=== PATIENT | male | born 1945 | race Caucasian/White ===

== ENCOUNTER → 2018-08-09 07:37 | Outpatient (CLI) | payer MEDICARE, OTHER, SELFPAY ==
[2018-08-09 12:04] LABS: ALB/GLOB Ratio 0.8 RATIO (0.9-2.4); AST(SGOT) 31 U/L (15-37); Alanine Aminotransfer ALT/SGPT 46 U/L (16-61); Albumin, Serum 3.4 g/dL (3.2-5.0); Alkaline Phosphatase 90 U/L (45-117); Anion Gap 11 (5-15); BUN 25 mg/dL (7-18); BUN/Creat Ratio 21.6 RATIO (10-20); Calcium,Total 9.1 mg/dL (8.5-10.1); Chloride 102 mmol/L (98-107); Cholesterol 155 mg/dL (200); Creatinine, Serum 1.16 mg/dL (0.70-1.30); EST Glomerular Filtration Rate 66 mL/min (>60); Est Glom Filt Rate - Afr Amer 80 mL/min (>60); Globulin 4.3 g/dL (2.2-4.2); Glucose 100 mg/dL (74-106); High Density Lipoprotein 40 mg/dL; PSA,Total - Annual Screen 2.65 ng/mL (0.00-4.00); Potassium 4.1 mmol/L (3.5-5.1); Protein, Total 7.7 g/dL (6.4-8.2); Sodium Level 139 mmol/L (136-145); Triglycerides 115 mg/dL; Very Low Density Lipoprotein 23 mg/dL (5-40)
== END ==
PROVIDERS: Family Provider Family Medicine; PCP Family Medicine; Visit Provider Family Medicine
DX: E78.5 Hyperlipidemia, unspecified (principal); Z12.5 Encounter for screening for malignant neoplasm of prostate; M19.012 Primary osteoarthritis, left shoulder
CPT/HCPCS: 36415; 80053; 80061; 84153; 97110; 97140; G0103

== ENCOUNTER 2018-08-31 08:30 | Outpatient (RCR) | payer MEDICARE, OTHER, SELFPAY ==
--- NOTE | 2018-08-31 09:05 | HP.PTREVAL ---
Jonel Kat MD, It has been my pleasure to treat VALERIANO NICHOLSON over the last 8 visits for L reverse total shoulder. Please see the progress note below for an update on the physical therapy plan of care! Subjective: Patient reports that he is doing great- no problems- only mild pain with sleeping when he wakes up. He feels that his swelling is better and he is happy with progress. Goes to MD this week. Has resumed all normal activities including lifting grandchildren, spinning and being active Objective/Function: Posture: FH, RS, Increased kyphosis- can correct with verbal cueing but does not maintain. No sling or guarding of the left UE. Gait: good arms swing and trunk rotation. Palpation: not tender. ROM:AROM: flexion: 130 degrees, Abd: 125 degrees, IR: to pocket, ER: 30 degrees- elbow/wrist/finger dexterity: WNL. Strength: Isometrically: 5/5 throughout Plan Plan: Hold- returns to MD this week Goals Goal 1:: Patient will be I with HEP and progressions. Goal Time Frame: 4-6 Weeks Goal Progress: Progressing Goal 2:: Patient will increase UE AROM to functional limits where deficits (per protocol) Goal Time Frame: 4-6 Weeks Goal Progress: Progressing Goal 3:: Patient will maintain proper posture t/o tx session to demo increased scap s/s. Goal Time Frame: 4-6 Weeks Goal Progress: Progressing Goal 4:: Patient will return to all normal ADL's with 0/10 pain Goal Time Frame: 4-6 Weeks Goal Progress: Progressing Anticipated Interventions Patient/Client Instruction: Educate patient on: Plan of Care, Benefits of Fitness Program For the Purpose of:: To decrease pain, To decrease swelling/inflammation, To increase ROM Therapeutic Exercise to Include: Strength training, Endurance training, Body mechanics, Postural training, Passive ROM, Active ROM, Scapular Strength/Stabilization Comment: as per protocol For the Purpose of:: To improve muscle performance and motor function TENS: Yes Cryotherapy (ice pack, ice massage): Yes Thermo therapy (hot pack): Yes Ultrasound (thermal/non thermal): No Please do not hesitate to contact me at [phone] by phone or if you have questions or concerns regarding this new plan of care! Sincerely, Livia Talavera
--- NOTE | 2019-03-22 08:53 | HP.PTDCNRP_ITS ---
HP - Discharge Summary (1) - Patient Information VALERIANO NICHOLSON was seen in my office for initial evaluation on 08/06/18. The following Plan of Care was established for this patient: Initial Frequency: 2x /Week Initial Duration: 4 Weeks - Anticipated Interventions Patient/Client Instruction: Educate patient on: Plan of Care, Benefits of Fitness Program For the Purpose of:: To decrease pain, To decrease swelling/inflammation, To increase ROM Therapeutic Exercise to Include: Strength training, Endurance training, Body mechanics, Postural training, Passive ROM, Active ROM, Scapular Strength /Stabilization For the Purpose of:: To improve muscle performance and motor function TENS: Yes Cryotherapy (ice pack, ice massage): Yes Thermo therapy (hot pack): Yes Ultrasound (thermal/non thermal): No This patient was last seen in our office . Pertinent comments regarding their Physical therapy will appear below: Patient has not attended physical therapy in over 30 days. At this time it is appropriate to be discharged and return to MD for further evaluation as needed. At this point I will be discontinuing this patient from physical therapy. I would be happy to see this patient again in the future if found appropriate by the physician. Thank you! KATERINA ZunigaT
== END 2018-08-31 19:00 | disposition home or self-care (01) ==
LOC: PT 08:30
PROVIDERS: Family Provider Family Medicine; PCP Family Medicine; Visit Provider Orthopaedic Surgery
DX: M19.012 Primary osteoarthritis, left shoulder (principal)
CPT/HCPCS: 97110; 97140; 97162; 97164

== ENCOUNTER 2019-03-12 09:30 | Outpatient (RCR) | payer MEDICARE, OTHER, SELFPAY ==
--- NOTE | 2019-01-14 09:37 | HP.PTEVAL_ITS ---
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 Date of Evaluation: 01/14/19 Physical Therapist: Tomasz Staples, DPT, OCS, CSCS - Visit Plan Frequency: 2x /Week Duration: 3 Months Plan: 2x/week for 8-12 total as needed for ... phase 1 PROM R shoulder and scap and progression of HEP. Ensure AROM elbow, wirst , scap. NO IR, ext rotation toward 30 degrees as able, flexiona dn abd to 90. submaximal deltoid and periscapular painfree isometrics. - Subjective Findings: 01/07/19 R TSA(had L one done last fall). Was having shoulder pain and troubole sleeping and L one went so well he wanted it done soon. REV R TSA 01/07. Been in sling for last week, out to move elbow a little bit. Sleeping propped up in bed 45 degrees and comfortable without sling. Sleeping in bed 7-8 hours, reads at times. Ice machine used alot for the first week. Pulling pants on is tough after going to the bathroom. HEP: elbow ROM, moving it to 90 degrees, to neutral ext rotation. Precautions: no driving yet, no lifting. Can use R hand in sling. In sling for one month out and about. Can drive in another week. Retired [employer]. Retired 3 years. Activities include: 5 kids all adn grandchildren and spend time with them. All in [facility]. Enjoys golfing socially and belongs to country club. Enjoys tennis and is R handed. Enjoys skiing since . Basic ADLs, are challenign and limited with R UE right now. - Pain R shoulder. Pain Intensity (Out of 10): 1 Pain Intensity Range: 1, 5 Comment: worse at night, transitioning. Elbow can hurt at times - Objective Posture is forward head and scapula. L UE AROM. 35 ext rotation, IR to PSIS, flexion to 125 adn abd to 115. R UE PROM. 100 felxion, 90 abduction, 8 ext rotation, IR 2 inches off body. Limited by tightness in elevation and ext rotationa dn discomfort IR. R strength shoulder and elbow not tested. R elbow full AROM but slow at end range. R wrist AROM full and painfree. incision is large and anterior, healed well without drainage or excessive redness or heat. Moderate edema around anterior shoulder palpable adn slight discoloration down into medial elbow. - Goals Goal 1:: Sleep withotu waking at night due to pain Goal Time Frame: 6-8 Weeks Goal 2:: Full AROM to 150 flexiona dn abd and 50 ext rotation and IR to make ADLS easier. Goal Time Frame: 4-6 Weeks Goal 3:: Tuck in shirt and put on coat without pain Goal Time Frame: 4-6 Weeks Goal 4:: Pt feel back to 80% activities adn plan to resume golf Goal Time Frame: 8-12 Weeks - Rehabilitation Potential Physical Therapy Diagnosis: s/p rev TSA 01/07 Rehabilitation Potential: Good - Anticipated Interventions Patient/Client Instruction: Educate patient on: Condition, Plan of Care For the Purpose of:: To decrease pain, To decrease swelling/inflammation, To increase ROM, To improve nutrient delivery to tissue, To increase tolerance to activity/condition/position, To improve ability of physical actions for home/community/work/leisure Therapeutic Exercise to Include: Passive ROM, Active ROM Comment: isometrics For the Purpose of:: To decrease pain, To increase ROM, To improve nutrient delivery to tissue, To improve muscle performance and motor function Manual Therapy Techniques to Include: Passive ROM For the Purpose of:: To decrease pain, To increase ROM Cryotherapy (ice pack, ice massage): Yes Thermo therapy (hot pack): Yes For the Purpose of:: To decrease pain, To improve nutrient delivery to tissue Thank you for the opportunity to evaluate your patient. For Medicare and Medicare HMO plans, please review the plan of care and approve it. It will need to be FAXED BACK to us at [phone] for Medicare purposes. For Medicare only, by signing this I certify the plan of care. Please let me know if there are questions or concerns regarding this plan of care. Physician Signature: Date:
--- NOTE | 2019-02-11 09:51 | HP.PTREVAL ---
Jonel Kat MD, It has been my pleasure to treat VALERIANO NICHOLSON over the last 9 visits for OA R shoulder s/p rev TSA 01/07. Please see the progress note below for an update on the physical therapy plan of care! Subjective: Doing well. Pain daily is low. Sometimes hurts at night. taking one ibuprofen adn one tylenol which eliminates the pain. Vague ache with exercises but not bad. Out of sling. Doing stick ex standing and wall towel ex at home. Also doing isometric deltoid at home. Objective/Function: AROM: 130 flexion, 110 abd, 25 R and 30 L. IR to pocket. Increased ext rotation to 35 adn IR to PSIS after stretches. Plan Plan: 2x/week for 3-6 for start strengthening if doctor visit goes wella dn ensure elevation and rotations improving. Goals Goal 1:: Sleep withotu waking at night due to pain Goal Time Frame: 6-8 Weeks Goal Progress: Progressing Goal 2:: Full AROM to 150 flexiona dn abd and 50 ext rotation and IR to make ADLS easier. Goal Time Frame: 4-6 Weeks Goal Progress: Progressing Goal 3:: Tuck in shirt and put on coat without pain Goal Time Frame: 4-6 Weeks Goal Progress: Progressing Goal 4:: Pt feel back to 80% activities adn plan to resume golf Goal Time Frame: 8-12 Weeks Goal Progress: Progressing Anticipated Interventions Patient/Client Instruction: Educate patient on: Condition, Plan of Care For the Purpose of:: To decrease pain, To decrease swelling/inflammation, To increase ROM, To improve nutrient delivery to tissue, To increase tolerance to activity/condition/position, To improve ability of physical actions for home/community/work/leisure Therapeutic Exercise to Include: Passive ROM, Active ROM Comment: isometrics For the Purpose of:: To decrease pain, To increase ROM, To improve nutrient delivery to tissue, To improve muscle performance and motor function Manual Therapy Techniques to Include: Passive ROM For the Purpose of:: To decrease pain, To increase ROM Cryotherapy (ice pack, ice massage): Yes Thermo therapy (hot pack): Yes For the Purpose of:: To decrease pain, To improve nutrient delivery to tissue Please do not hesitate to contact me at [phone] by phone or if you have questions or concerns regarding this new plan of care! Sincerely, Tomasz Staples, DPT, OCS, CSCS
--- NOTE | 2019-03-12 10:26 | HP.PTDCSUM ---
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 Discharge Date: 03/12/19 Please see the following information for a summary of their discharge status. - Subjective Subjective: Ready to be done. Does HEP at HP and at home. Has pulleys at home. To doctor in July as needed. Sleep is OK, improoving, Some discomfort if sleeps on L side with R arm hanging. Will avoid this. Daily activities are pretty normal outsid eof reaching into R back pocket. Lifting 25# without a problem. Pain level is not present except at night if in wrong position. - Pain R shoulder. Pain Intensity (Out of 10): 1 - Overall Improvement % Improvement: 90 - Objective Objective/Function: 143 flexion, 135 abd, er 35 R and 20 L , to back pocket with IR. Better after stick IR. 4+/5 and symmetrical with L strength in flexion, abd, ext rot, and IR. OVERALL DOING WELL IN MEASURABLES AND SUBJECTIVE. - Goals Goal 1:: Sleep withotu waking at night due to pain Goal Progress: Goal Met Goal 2:: Full AROM to 150 flexiona dn abd and 50 ext rotation and IR to make ADLS easier. Goal Progress: 143 Goal 3:: Tuck in shirt and put on coat without pain Goal Progress: Goal Met Goal 4:: Pt feel back to 80% activities adn plan to resume golf Goal Progress: Goal Met - Plan Plan: D/C, TO CONTINUE EX I IN GYMA ND AT HOME. - D/C Information Discharge Comments: Pt doing well with HEP and will continue I at home and in gym. Will notify If there are questions or concerns regarding this patient's physical therapy, please feel free to call me at [phone]. Thank you for the referral of this patient. Sincerely, Tomasz Staples, DPT, OCS, CSCS
== END 2019-03-12 19:00 | disposition home or self-care (01) ==
LOC: PT 09:30
PROVIDERS: Family Provider Family Medicine; PCP Family Medicine; Visit Provider Orthopaedic Surgery
DX: Z96.611 Presence of right artificial shoulder joint (principal)
CPT/HCPCS: 97110; 97140; 97162; 97530

== ENCOUNTER → 2019-08-16 10:56 | Outpatient (CLI) | payer MEDICARE, OTHER, SELFPAY ==
[2019-08-16 12:32] LABS: AST(SGOT) 22 U/L (15-37); Alanine Aminotransfer ALT/SGPT 28 U/L (16-61); Albumin, Serum 3.8 g/dL (3.2-5.0); Alkaline Phosphatase 83 U/L (45-117); Anion Gap 6 (5-15); BUN 17 mg/dL (7-18); BUN/Creat Ratio 13.7 RATIO (10-20); Calcium,Total 9.5 mg/dL (8.5-10.1); Chloride 103 mmol/L (98-107); Cholesterol 200 mg/dL (200); Creatinine, Serum 1.24 mg/dL (0.70-1.30); EST Glomerular Filtration Rate 61 mL/min (>60); Est Glom Filt Rate - Afr Amer 74 mL/min (>60); Glucose 106 mg/dL (74-106); High Density Lipoprotein 56 mg/dL; Potassium 4.2 mmol/L (3.5-5.1); Protein, Total 7.8 g/dL (6.4-8.2); Sodium Level 137 mmol/L (136-145); Triglycerides 132 mg/dL; Very Low Density Lipoprotein 26 mg/dL (5-40)
== END ==
PROVIDERS: Family Provider Family Medicine; PCP Family Medicine; Referring Provider Family Medicine; Visit Provider Family Medicine
DX: E78.5 Hyperlipidemia, unspecified (principal); Z12.5 Encounter for screening for malignant neoplasm of prostate
CPT/HCPCS: 36415; 80053; 80061; 84153; G0103

== ENCOUNTER → 2020-05-05 08:48 | Outpatient (CLI) | payer MEDICARE, OTHER, SELFPAY ==
[2020-05-05 10:37] LABS: Cholesterol 167 mg/dL (200); High Density Lipoprotein 59 mg/dL; Triglycerides 94 mg/dL; Very Low Density Lipoprotein 19 mg/dL (5-40)
== END ==
PROVIDERS: PCP Family Medicine; Referring Provider Family Medicine; Visit Provider Family Medicine
DX: E78.5 Hyperlipidemia, unspecified (principal)
CPT/HCPCS: 36415; 80061

== ENCOUNTER → 2020-09-10 08:05 | Outpatient (CLI) | payer MEDICARE, OTHER, SELFPAY ==
[2020-09-10 09:55] LABS: Hematocrit 46.4 % (40-54); Hemoglobin 15.5 g/dL (13.0-16.5); Mean Corp Hgb Conc 33.4 g/dL (32-36); Mean Corpuscular Hgb 31.1 pg (27.0-32.0); Mean Corpuscular Volume 93.2 fL (80-94); Mean Platelet Vol. 11.1 fl (6.2-12.0); Platelet Count 229 K/mm3 (150-450); RBC Distribution Width CV 12.8 % (11.6-14.6); RBC Distribution Width SD 44.2 fl (35.1-43.9); Red Blood Count 4.98 M/mm3 (4.6-6.2); White Blood Count 5.9 K/mm3 (4.4-11.0)
[2020-09-10 10:27] LABS: ALB/GLOB Ratio 1.1 RATIO (0.9-2.4); AST(SGOT) 30 U/L (15-37); Alanine Aminotransfer ALT/SGPT 33 U/L (16-61); Alkaline Phosphatase 63 U/L (45-117); Anion Gap 6 (5-15); BUN 30 mg/dL (7-18); BUN/Creat Ratio 22.7 RATIO (10-20); Calcium,Total 8.7 mg/dL (8.5-10.1); Chloride 104 mmol/L (98-107); Cholesterol 169 mg/dL (200); Creatinine, Serum 1.32 mg/dL (0.70-1.30); EST Glomerular Filtration Rate 57 mL/min (>60); Est Glom Filt Rate - Afr Amer 68 mL/min (>60); Globulin 3.8 g/dL (2.2-4.2); Glucose 112 mg/dL (74-106); High Density Lipoprotein 64 mg/dL; PSA,Total - Annual Screen 1.06 ng/mL (0.00-4.00); Potassium 4.2 mmol/L (3.5-5.1); Protein, Total 7.8 g/dL (6.4-8.2); Sodium Level 139 mmol/L (136-145); Triglycerides 77 mg/dL; Very Low Density Lipoprotein 15 mg/dL (5-40)
== END ==
PROVIDERS: PCP Family Medicine; Referring Provider Family Medicine; Visit Provider Family Medicine
DX: D03.9 Melanoma in situ, unspecified (principal); R73.01 Impaired fasting glucose; E78.5 Hyperlipidemia, unspecified; N40.0 Benign prostatic hyperplasia without lower urinary tract symptoms
CPT/HCPCS: 36415; 80053; 80061; 83036; 84153; 85027; G0103

== ENCOUNTER 2021-01-01 16:56 | Outpatient (RCR) | payer MEDICARE, OTHER, SELFPAY | END 2021-01-01 23:59 | LOC: IMMUN 16:56 | PROVIDERS: PCP Family Medicine; Visit Provider Family Medicine | DX: Z23 Encounter for immunization (principal) | CPT/HCPCS: 0011A; 0012A ==

== ENCOUNTER → 2021-08-17 09:15 | Outpatient (CLI) | payer MEDICARE, OTHER, SELFPAY ==
[2021-08-17 10:06] LABS: Hematocrit 45.9 % (40-54); Hemoglobin 15.3 g/dL (13.0-16.5); Mean Corp Hgb Conc 33.3 g/dL (32-36); Mean Corpuscular Hgb 30.2 pg (27.0-32.0); Mean Corpuscular Volume 90.7 fL (80-94); Mean Platelet Vol. 10.7 fl (6.2-12.0); Platelet Count 200 K/mm3 (150-450); RBC Distribution Width SD 43.5 fl (35.1-43.9); Red Blood Count 5.06 M/mm3 (4.6-6.2); White Blood Count 5.7 K/mm3 (4.4-11.0)
[2021-08-17 10:34] LABS: Hemoglobin A1c 5.9 % (3.8-5.6)
[2021-08-17 10:47] LABS: AST(SGOT) 21 U/L (15-37); Alanine Aminotransfer ALT/SGPT 24 U/L (16-61); Albumin, Serum 3.6 g/dL (3.2-5.0); Alkaline Phosphatase 59 U/L (45-117); Anion Gap 8 (5-15); BUN 28 mg/dL (7-18); BUN/Creat Ratio 25.7 RATIO (10-20); Calcium,Total 8.9 mg/dL (8.5-10.1); Chloride 102 mmol/L (98-107); Cholesterol 231 mg/dL (200); Creatinine, Serum 1.09 mg/dL (0.70-1.30); EST Glomerular Filtration Rate 70 mL/min (>60); Est Glom Filt Rate - Afr Amer 85 mL/min (>60); Globulin 3.7 g/dL (2.2-4.2); Glucose 103 mg/dL (74-106); High Density Lipoprotein 46 mg/dL; PSA,Total - Annual Screen 1.31 ng/mL (0.00-4.00); Potassium 4.1 mmol/L (3.5-5.1); Protein, Total 7.3 g/dL (6.4-8.2); Sodium Level 140 mmol/L (136-145); Triglycerides 149 mg/dL; Very Low Density Lipoprotein 30 mg/dL (5-40)
== END ==
PROVIDERS: PCP Family Medicine; Referring Provider Family Medicine; Visit Provider Family Medicine
DX: E78.5 Hyperlipidemia, unspecified (principal); Z12.5 Encounter for screening for malignant neoplasm of prostate; R73.01 Impaired fasting glucose
CPT/HCPCS: 36415; 80053; 80061; 83036; 84153; 85027; G0103

== ENCOUNTER → 2021-11-03 08:25 | Outpatient (CLI) | payer MEDICARE, OTHER, SELFPAY ==
[2021-11-03 10:29] LABS: Cholesterol 236 mg/dL (200); High Density Lipoprotein 45 mg/dL; Triglycerides 137 mg/dL; Very Low Density Lipoprotein 27 mg/dL (5-40)
== END ==
PROVIDERS: PCP Family Medicine; Referring Provider Family Medicine; Visit Provider Family Medicine
DX: E78.5 Hyperlipidemia, unspecified (principal)
CPT/HCPCS: 36415; 80061

== ENCOUNTER 2022-01-31 10:00 | Outpatient (RCR) | payer MEDICARE, OTHER, SELFPAY ==
--- NOTE | 2021-12-03 09:43 | HP.PTEVAL_ITS ---
Patient's Visit Information VALERIANO NICHOLSON is a 76 year old M referred to Physical Therapy by AKIL REEVES with a diagnosis of L posterior tibial tendon dysfunction with subsequent posterior tibial tend. Date of Evaluation: 12/03/21 Physical Therapist: Miguel Mitchell DPT - Visit Plan Frequency: 3x /Week Duration: 6 Weeks Plan: Start with ankle ROM, avoid increased pronation. Add in ankle strengthening, hip ER and hip abd. Progress proper gait mechanics working on reducing pronation along with improved initial contact and stability in stance phase. Consider SLS activities once pain is minimal with focus on proper stability with reduced foot/ankle pronation. IE HEP: 4 way OTB 3x10. toe curls x20. gatroc stretch with towel 3x1'. soleus stretch with towel 3x1'. above given as HEP. Pt. to complete x2 daily. - Subjective Pt. is here today for his initial evaluation diagnosis of L posterior tibial tendon dysfunction with subsequent posterior tibial tendon transfer. Surgery was 10 weeks ago. Pt. was initially in a cast which was removed last week. He is now full WBing on his LLE. He reports overall minimal pain with walking, but feels like he is walking a but off. Denies N/T, no changes in vision or breathing, no calf pain noted. 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 Hobbies include walking, hiking and cycling. He is hopeful to get back to all of these activities without limitations. He was advised to look into a compression sleeve of some sort and to wear OTC orthotics to increase longitudinal arch stability. He is very active and looking to get back to doing so. He did have a little skin irritation at medial malleolus, but reports that this is mostly superficial. Pt. to RTD in 4 -5 weeks. - Pain L ankle Pain Intensity (Out of 10): 1 Pain Intensity Range: 0, 3 - Objective POSTURE: Pt. has normal WBing in stance. He has slight ankle EVR with slight pronation in bare feet, improved with wearing orthotic and shoes. PALPATION: Pt. has normal healing incision along posterior tibial tendon, posterior to medial malleolus. He does have a small area of skin break down. Appears to be superficial in nature and no signs of infection. Will continue to monitor until healed. NEURO: Normal sensation and normal DTR of BLEs. ROM: R ankle: DF 18deg, PF 48deg, INV 13deg, EVR 16deg. L ankle: PF 38deg, DF 3deg, INV 3deg, EVR 16deg. Pt. reports no pain with active mobility today. He does tend to go into ankle EVR with DF activation. Pt. has normal B knee ROM and hip ROM. MMT: R ankle 5/5 throughout. L ankle: DF 4/5, PF 4+/5, INV 4/5, EVR 4/5. toe flexors 4/5, ext 5-/5. L knee 5/5 throughout. L hip: 5/5, except hip ER 4/5, and hip abd 4/5. GAIT: Pt. has early heel off at end of stance phase on LLE along with increased ankle EVR resulting in slight increase in great toe push off and increased pronation. Improved with VCing, which did slow down emmanuel. - Balance/Special Test Scores Lower Extremity Functional Score: 49 - Goals Goal 1:: LTG: Pt. to be I with HEP for ankle/foot strengthening, ankle ROM and gait progression. Goal Time Frame: 4-6 Weeks Goal 2:: STG: Pt. to have increased DF with out EVR compensation to 15deg allowing for improved gait mechanics and stair negotiation Goal Time Frame: 2-4 Weeks Goal 3:: LTG: Pt. to normal gait pattern with out increase in symptoms. Goal Time Frame: 4-6 Weeks Goal 4:: LTG: Pt. to have increased foot/ankle/hip strength to 5/5 throughout. Goal Time Frame: 4-6 Weeks Goal 5:: LTG: Pt. to resume cycling without increase in symptoms. Goal Time Frame: 4-6 Weeks Goal 6:: LTG: Pt. to ambulate 1 mile without increase in symptoms with proper gait mechanics. Goal Time Frame: 4-6 Weeks - Rehabilitation Potential Physical Therapy Diagnosis: Pt. has signs and symptoms consistent with L posterior tibial tendon dysfunction with subsequent posterior tibial tendon transfer. Pt. has subsequent hypomobility, weakness and difficulty with gait. Pt. would benefit from PT to address the above limitations progressing - Anticipated Interventions Patient/Client Instruction: Educate patient on: Condition, Plan of Care, Risk Factors, Benefits of Fitness Program For the Purpose of:: To foster healthy habits, To improve decision making, To facilitate caregiver knowledge, To improve self management, To prevent re-inju ry, To improve ability to perform tasks related to life management Therapeutic Exercise to Include: Strength training, Power training, Endurance training, Balance training, Coordination, Body mechanics, Postural training, Flexibilty training, Gait and locomotor training, Passive ROM, Active ROM For the Purpose of:: To decrease pain, To increase ROM, To improve nutrient delivery to tissue, To increase oxygenation perfusion, To improve muscle performance and motor function, To decrease level of supervision to perform tasks, To improve ability of physical actions for home/community/work/leisure, To improve gait and locomotor functions, To improve health of tissue, To decrease soft tissue restriction, To increase flexibility/ROM Thank you for the opportunity to evaluate your patient. For Medicare and Medicare HMO plans, please review the plan of care and approve it. It will need to be FAXED BACK to us at [phone] for Medicare purposes. For Medicare only, by signing this I certify the plan of care. Please let me know if there are questions or concerns regarding this plan of care. Physician Signature:_ Date:
--- NOTE | 2022-01-04 16:24 | HP.PTREVAL_ITS ---
AKIL REEVES, It has been my pleasure to treat VALERIANO NICHOLSON over the last 14 visits for L posterior tibial tendon dysfunction with subsequent posterior tibial tend. Please see the progress note below for an update on the physical therapy plan of care! Subjective: Pt. reports overall doing well. He is back to doing his cycling classes, including clipping in without issues. He reports waling upto 1.5 miles without much issues. He still reports his foot wants to pronate during gait, but is overall doing better. Objective/Function: Presentation: Pt. has a slight increase in ankle EVR position with hind foot valgus in stance. PALPATION: pt. has well healed incision, no signs of infection. No pain with palpation. NEURO: normal sensation throughout. ROM: DF 9deg, PF 44deg, INV 3 deg, EVR 20deg. MMT: DF 5/5, PF 5/5, EVR 5/5, INV 3/5. Knee: 5/5 throughout. gait: Pt. has good heel strike with initial contact. He does have increased pronation during stance and pre swing phases. Improved with VCing to work on push off, and post tib activation. Plan Plan: Pt. to follow up with physician later this week. I do think he needs to continue to work on ankle ROM especially into INV and supination. Balance/Gait/Functional tests - Balance/Special Test Scores Lower Extremity Functional Score: 60 Goals Goal 1:: LTG: Pt. to be I with HEP for ankle/foot strengthening, ankle ROM and gait progression. Goal Time Frame: 4-6 Weeks Goal Progress: Progressing Goal 2:: STG: Pt. to have increased DF with out EVR compensation to 15deg allowing for improved gait mechanics and stair negotiation Goal Time Frame: 2-4 Weeks Goal Progress: Progressing Goal 3:: LTG: Pt. to normal gait pattern with out increase in symptoms. Goal Time Frame: 4-6 Weeks Goal Progress: Progressing Goal 4:: LTG: Pt. to have increased foot/ankle/hip strength to 5/5 throughout. Goal Time Frame: 4-6 Weeks Goal Progress: Progressing Goal 5:: LTG: Pt. to resume cycling without increase in symptoms. Goal Time Frame: 4-6 Weeks Goal Progress: Goal Met Goal 6:: LTG: Pt. to ambulate 1 mile without increase in symptoms with proper gait mechanics. Goal Time Frame: 4-6 Weeks Goal Progress: Progressing Anticipated Interventions Patient/Client Instruction: Educate patient on: Condition, Plan of Care, Risk Factors, Benefits of Fitness Program For the Purpose of:: To foster healthy habits, To improve decision making, To facilitate caregiver knowledge, To improve self management, To prevent re- injury, To improve ability to perform tasks related to life management Therapeutic Exercise to Include: Strength training, Power training, Endurance training, Balance training, Coordination, Body mechanics, Postural training, Flexibilty training, Gait and locomotor training, Passive ROM, Active ROM For the Purpose of:: To decrease pain, To increase ROM, To improve nutrient delivery to tissue, To increase oxygenation perfusion, To improve muscle performance and motor function, To decrease level of supervision to perform tasks, To improve ability of physical actions for home/community/work/leisure, To improve gait and locomotor functions, To improve health of tissue, To decrease soft tissue restriction, To increase flexibility/ROM Please do not hesitate to contact me at [phone] by phone or if you have questions or concerns regarding this new plan of care! Sincerely, KATERINA MillsT
--- NOTE | 2022-01-31 10:50 | HP.PTREVAL_ITS ---
AKIL REEVES, It has been my pleasure to treat VALERIANO NICHOLSON over the last 20 visits for L posterior tibial tendon dysfunction with subsequent posterior tibial tend. Please see the progress note below for an update on the physical therapy plan of care! Subjective: Pt. reports overall doing well. pt. reports no pain. He has recently got an over the counter orthotic which is helping. Pt. is going on vacation soon. He reports being 85% better overall. Objective/Function: Pt. has good ROM of his L ankle; DF 13deg, PF 41deg, INV 4d eg, EVR 13deg) actively. MMT 5/5 with make testing. GAIT: Pt. is walking well. He has good foot positioning with shoe on, slight increase in pronation during stance phase with out shoes on. SLS: He has increased pronation and EVR during SLS, improved with VCing. Overall he is doing well. He is back to cycling without issues and has been able to walk ~2 miles without pain. Plan Plan: Pt. will be DC to [facility] at this point in time. He has met all goals and is I with his HEP. Balance/Gait/Functional tests - Balance/Special Test Scores Lower Extremity Functional Score: 66 Goals Goal 1:: LTG: Pt. to be I with HEP for ankle/foot strengthening, ankle ROM and gait progression. Goal Time Frame: 4-6 Weeks Goal Progress: Goal Met Goal 2:: STG: Pt. to have increased DF with out EVR compensation to 15deg allowing for improved gait mechanics and stair negotiation Goal Time Frame: 2-4 Weeks Goal Progress: Goal Met Goal 3:: LTG: Pt. to normal gait pattern with out increase in symptoms. Goal Time Frame: 4-6 Weeks Goal Progress: Goal Met Goal 4:: LTG: Pt. to have increased foot/ankle/hip strength to 5/5 throughout. Goal Time Frame: 4-6 Weeks Goal Progress: Goal Met Goal 5:: LTG: Pt. to resume cycling without increase in symptoms. Goal Time Frame: 4-6 Weeks Goal Progress: Goal Met Goal 6:: LTG: Pt. to ambulate 1 mile without increase in symptoms with proper gait mechanics. Goal Time Frame: 4-6 Weeks Goal Progress: Goal Met Anticipated Interventions Patient/Client Instruction: Educate patient on: Condition, Plan of Care, Risk Factors, Benefits of Fitness Program For the Purpose of:: To foster healthy habits, To improve decision making, To facilitate caregiver knowledge, To improve self management, To prevent re- injury, To improve ability to perform tasks related to life management Therapeutic Exercise to Include: Strength training, Power training, Endurance training, Balance training, Coordination, Body mechanics, Postural training, Flexibilty training, Gait and locomotor training, Passive ROM, Active ROM For the Purpose of:: To decrease pain, To increase ROM, To improve nutrient delivery to tissue, To increase oxygenation perfusion, To improve muscle performance and motor function, To decrease level of supervision to perform tasks, To improve ability of physical actions for home/community/work/leisure, To improve gait and locomotor functions, To improve health of tissue, To decrease soft tissue restriction, To increase flexibility/ROM Please do not hesitate to contact me at [phone] by phone or if you have questions or concerns regarding this new plan of care! Sincerely, Miguel Mitchell DPT
--- NOTE | 2022-01-31 13:14 | HP.PTDCSUM ---
It has been my pleasure to treat VALERIANO NICHOLSON referred by AKIL REEVES, with the diagnosis of L posterior tibial tendon dysfunction with subsequent posterior tibial tend for a total of 20 visit(s). Discharge Date: 01/31/22 Please see the following information for a summary of their discharge status. Subjective: Pt. reports overall doing well. pt. reports no pain. He has recently got an over the counter orthotic which is helping. Pt. is going on vacation soon. He reports being 85% better overall. L ankle Pain Intensity (Out of 10): 0 % Improvement: 85 Objective/Function: Pt. has good ROM of his L ankle; DF 13deg, PF 41deg, INV 4deg, EVR 13deg) actively. MMT 5/5 with make testing. GAIT: Pt. is walking well. He has good foot positioning with shoe on, slight increase in pronation during stance phase with out shoes on. SLS: He has increased pronation and EVR during SLS, improved with VCing. Overall he is doing well. He is back to cycling without issues and has been able to walk ~2 miles without pain. Goal 1:: LTG: Pt. to be I with HEP for ankle/foot strengthening, ankle ROM and gait progression. Goal Progress: Goal Met Goal 2:: STG: Pt. to have increased DF with out EVR compensation to 15deg allowing for improved gait mechanics and stair negotiation Goal Progress: Goal Met Goal 3:: LTG: Pt. to normal gait pattern with out increase in symptoms. Goal Progress: Goal Met Goal 4:: LTG: Pt. to have increased foot/ankle/hip strength to 5/5 throughout. Goal Progress: Goal Met Goal 5:: LTG: Pt. to resume cycling without increase in symptoms. Goal Progress: Goal Met Goal 6:: LTG: Pt. to ambulate 1 mile without increase in symptoms with proper gait mechanics. Goal Progress: Goal Met Plan: Pt. will be DC to HEP at this point in time. He has met all goals and is I with his HEP. Discharge Comments: Pt is overall doing well. Pt. has met all goals with PT and will be DC to HEP at this point in time. If there are questions or concerns regarding this patient's physical therapy, please feel free to call me at [phone]. Thank you for the referral of this patient. Sincerely, Miguel Mitchell, DPT Balance/Gait/Functional tests - Balance/Special Test Scores Lower Extremity Functional Score: 66
== END 2022-01-31 19:00 | disposition home or self-care (01) ==
LOC: PT 10:00
PROVIDERS: PCP Family Medicine
DX: Z98.890 Other specified postprocedural states (principal)
CPT/HCPCS: 97110; 97161; 97164

== ENCOUNTER → 2022-08-22 | Outpatient (CLI) | payer MEDICARE, OTHER, SELFPAY ==
[2022-08-22 10:10] LABS: Hemoglobin 15.4 g/dL (13.0-16.5); Mean Corp Hgb Conc 34.2 g/dL (32-36); Mean Corpuscular Volume 90.5 fL (80-94); Mean Platelet Vol. 10.8 fl (6.2-12.0); Platelet Count 200 K/mm3 (150-450); RBC Distribution Width SD 43.3 fl (35.1-43.9); Red Blood Count 4.97 M/mm3 (4.6-6.2); White Blood Count 6.3 K/mm3 (4.4-11.0)
[2022-08-22 11:16] LABS: ALB/GLOB Ratio 1.1 RATIO (0.9-2.4); AST(SGOT) 30 U/L (15-37); Alanine Aminotransfer ALT/SGPT 47 U/L (16-61); Albumin, Serum 3.9 g/dL (3.2-5.0); Alkaline Phosphatase 59 U/L (45-117); Anion Gap 8 (5-15); BUN 27 mg/dL (7-18); BUN/Creat Ratio 23.7 RATIO (10-20); Calcium,Total 9.1 mg/dL (8.5-10.1); Chloride 105 mmol/L (98-107); Cholesterol 172 mg/dL (200); Creatinine, Serum 1.14 mg/dL (0.70-1.30); EST Glomerular Filtration Rate 67 mL/min (>60); Est Glom Filt Rate - Afr Amer 81 mL/min (>60); Globulin 3.7 g/dL (2.2-4.2); Glucose 104 mg/dL (74-106); High Density Lipoprotein 51 mg/dL; PSA,Total - Annual Screen 1.23 ng/mL (0.00-4.00); Potassium 3.9 mmol/L (3.5-5.1); Protein, Total 7.6 g/dL (6.4-8.2); Sodium Level 140 mmol/L (136-145); Triglycerides 89 mg/dL; Very Low Density Lipoprotein 18 mg/dL (5-40)
== END | disposition home or self-care (01) ==
LOC: MFPLAB 09:26
PROVIDERS: PCP Family Medicine; Visit Provider Family Medicine
DX: Z00.00 Encounter for general adult medical examination without abnormal findings (principal); E78.5 Hyperlipidemia, unspecified; N40.0 Benign prostatic hyperplasia without lower urinary tract symptoms; Z12.5 Encounter for screening for malignant neoplasm of prostate
CPT/HCPCS: 36415; 80053; 80061; 84153; 85027; G0103

== ENCOUNTER → 2023-08-28 | Outpatient (CLI) | payer MEDICARE, OTHER, SELFPAY ==
[2023-08-28 11:29] LABS: AST(SGOT) 23 U/L (15-37); Alanine Aminotransfer ALT/SGPT 40 U/L (16-61); Albumin, Serum 3.8 g/dL (3.2-5.0); Alkaline Phosphatase 58 U/L (45-117); Anion Gap 8 (5-15); BUN 29 mg/dL (7-18); Calcium,Total 8.7 mg/dL (8.5-10.1); Chloride 106 mmol/L (98-107); Cholesterol 170 mg/dL (200); EST Glomerular Filtration Rate 77 mL/min (>60); Est Glom Filt Rate - Afr Amer 93 mL/min (>60); Globulin 3.7 g/dL (2.2-4.2); Glucose 103 mg/dL (74-106); High Density Lipoprotein 51 mg/dL; Potassium 4.1 mmol/L (3.5-5.1); Protein, Total 7.5 g/dL (6.4-8.2); Sodium Level 138 mmol/L (136-145); Triglycerides 90 mg/dL; Very Low Density Lipoprotein 18 mg/dL (5-40)
[2023-08-28 11:35] LABS: Hemoglobin A1c 5.9 % (3.8-5.6)
== END | disposition home or self-care (01) ==
LOC: MFPLAB 09:11
PROVIDERS: PCP Family Medicine; Visit Provider Family Medicine
DX: E78.5 Hyperlipidemia, unspecified (principal); R73.01 Impaired fasting glucose; Z12.5 Encounter for screening for malignant neoplasm of prostate
CPT/HCPCS: 36415; 80053; 80061; 83036; 84153; G0103

== ENCOUNTER → 2024-09-04 | Outpatient (CLI) | payer MEDICARE, OTHER, SELFPAY ==
[2024-09-04 10:41] LABS: AST(SGOT) 23 U/L (15-37); Alanine Aminotransfer ALT/SGPT 26 U/L (16-61); Albumin, Serum 3.9 g/dL (3.2-5.0); Alkaline Phosphatase 65 U/L (45-117); Anion Gap 7 (5-15); BUN 20 mg/dL (7-18); Bilirubin, Direct 0.21 mg/dL (0.00-0.30); Calcium,Total 9.6 mg/dL (8.5-10.1); Chloride 102 mmol/L (98-107); Cholesterol 170 mg/dL (200); Creatinine, Serum 1.11 mg/dL (0.70-1.30); EST Glomerular Filtration Rate 68 mL/min (>60); Est Glom Filt Rate - Afr Amer 83 mL/min (>60); Globulin 4.1 g/dL (2.2-4.2); Glucose 110 mg/dL (74-106); High Density Lipoprotein 56 mg/dL; PSA,Total - Annual Screen 1.37 ng/mL (0.00-4.00); Potassium 3.9 mmol/L (3.5-5.1); Sodium Level 135 mmol/L (136-145); Triglycerides 119 mg/dL; Very Low Density Lipoprotein 24 mg/dL (5-40)
== END | disposition home or self-care (01) ==
LOC: MFPLAB 08:21
PROVIDERS: PCP Family Medicine; Visit Provider Family Medicine
DX: Z12.5 Encounter for screening for malignant neoplasm of prostate (principal); E78.5 Hyperlipidemia, unspecified; R73.01 Impaired fasting glucose
CPT/HCPCS: 36415; 80048; 80061; 80076; 84153; G0103

== ENCOUNTER → 2025-02-27 | Outpatient (CLI) | payer MEDICARE, OTHER, SELFPAY ==
[2025-02-27 11:02] LABS: Anion Gap 11 (5-15); BUN 27 mg/dL (4-19); BUN/Creat Ratio 22.9 RATIO (10-20); Calcium,Total 9.8 mg/dL (7.6-11.0); Carbon Dioxide 24.1 mmol/L (21.0-32.0); Chloride 101 mmol/L (98-108); Creatinine, Serum 1.17 mg/dL (0.70-1.20); EST Glomerular Filtration Rate 64 (>60); Glucose 97 mg/dL (70-99); Potassium 4.1 mmol/L (3.3-5.1); Sodium Level 136 mmol/L (133-145)
== END | disposition home or self-care (01) ==
LOC: MFPLAB 08:54
PROVIDERS: PCP Family Medicine; Referring Provider Family Medicine; Visit Provider Family Medicine
DX: R73.01 Impaired fasting glucose (principal)
CPT/HCPCS: 36415; 80048

== ENCOUNTER → 2025-09-01 | Outpatient (CLI) | payer MEDICARE, OTHER, SELFPAY ==
[2025-09-01 15:45] LABS: AST(SGOT) 32 U/L (<=37); Alanine Aminotransfer ALT/SGPT 29 U/L (<=46); Albumin, Serum 4.4 g/dL (3.4-4.8); Alkaline Phosphatase 64 U/L (40-129); Anion Gap 12 (5-15); BUN 19 mg/dL (4-19); BUN/Creat Ratio 17.5 RATIO (10-20); Calcium,Total 9.8 mg/dL (7.6-11.0); Carbon Dioxide 25.1 mmol/L (21.0-32.0); Chloride 100 mmol/L (98-108); Cholesterol 189 mg/dL (<=200); Globulin 3.1 g/dL (2.2-4.2); Glucose 95 mg/dL (70-99); Low Density Lipoprotein Calc. 112 mg/dL; Potassium 4.1 mmol/L (3.3-5.1); Triglycerides 113 mg/dL; Very Low Density Lipoprotein 23 mg/dL (5-40); cholesterol:hdl ratio screen 3.48
== END | disposition home or self-care (01) ==
LOC: MFPLAB 10:21
PROVIDERS: PCP Family Medicine; Visit Provider Family Medicine
DX: Z00.00 Encounter for general adult medical examination without abnormal findings (principal); E78.5 Hyperlipidemia, unspecified; N40.0 Benign prostatic hyperplasia without lower urinary tract symptoms; R73.01 Impaired fasting glucose
CPT/HCPCS: 36415; 80053; 80061

== ENCOUNTER → 2025-10-20 | Outpatient (CLI) | payer MEDICARE, OTHER, SELFPAY ==
[2025-10-20 13:29] LABS: PSA,Total - Annual Screen 1.43 ng/mL (0.02-4.00)
== END | disposition home or self-care (01) ==
LOC: MFPLAB 09:24
PROVIDERS: PCP Family Medicine; Visit Provider Family Medicine
DX: Z00.00 Encounter for general adult medical examination without abnormal findings (principal); N40.0 Benign prostatic hyperplasia without lower urinary tract symptoms; E78.5 Hyperlipidemia, unspecified; R73.01 Impaired fasting glucose
CPT/HCPCS: 36415; 84153; G0103